=== PATIENT | female | born 1975 | race Caucasian/White ===

== ENCOUNTER 2016-12-20 20:03 | Outpatient (CLI) | payer MEDICAID ==
[~2016-12-20] VITALS: Ht 167.6 cm; Wt 91.0 kg
[~2016-12-20 20:03] MED LIST: PREN1TAB49 PO
[2016-12-20 20:42] VITALS: BP 106/65; PULSE 83; RESP 18
[2016-12-20] MEDS ORDERED: CALC600T24 PO (23:16)
[2016-12-20] MEDS ORDERED: MISOPROSTOL 200 MCG TAB PR PRN (23:30)
[2016-12-20] MEDS ORDERED: BUTORPHANOL 2 MG INJ IV PRN (23:30)
[2016-12-20] MEDS ORDERED: IBUPROFEN 600 MG TAB PO PRN (23:30)
[2016-12-20] MEDS ORDERED: METHYLERGONOVINE 0.2 MG INJ IM PRN (23:30)
[2016-12-20] MEDS ORDERED: CARBOPROST 250 MCG INJ IM PRN (23:30)
[2016-12-20] MEDS ORDERED: OXYTOCIN 30 UNITS/LR 500 ML IV SCH ×2 (23:30)
[2016-12-20] MEDS ORDERED: LIDOCAINE 1% (MPF) 30 ML INJ INJ PRN (23:30)
[2016-12-20] MEDS ORDERED: OXYTOCIN 30 UNITS/LR 500 ML IV PRN (23:30)
[2016-12-20] MEDS ORDERED: AMPICILLIN 2 GM/NS (PMX) 100 ML IV ONE (23:30)
--- NOTE | 2016-12-20 23:55 | TRIAGE ---
OB Triage Datetime Report Generated by CPN: 12/20/2016 23:55 Datetime: 12/20/2016 21:32 Stage of : OB Triage Labor Evaluation Frequency: 7-15 Monitor Mode: External Duration (sec)2399: 60 Quality: Moderate Pattern: Normal: <= 5 Contractions in 10 Minutes Resting Tone Villalba: Relaxed Heart Rate FHR Baseline Rate: 120 Monitor Mode: External US FHR Baseline Changes: No Baseline Change Variability: Moderate 6-25 bpm Accelerations: 15X15 Decelerations: Variable Category: Category II Pain Assessment Pain Scale: 7 Pain Presence: Intermittent Pain Type: Contraction Pain Location: Abdomen Vaginal Exam Dilatation (cms): 3.0 Effacement (%): 60 Station: -3 Exam By: Mateo Briseno Membrane Status: Intact Amniotic Fluid Amount: None Vaginal Bleeding: Scant Cervix, Consistency: Soft Cervix, Position: Posterior Presentation 'A': Cephalic Datetime: 12/20/2016 20:23 Stage of : OB Triage Maternal Assessment Level of Consciousness: Fully Conscious Headache: Denies Blurred Vision: No Respiratory Effort: Unlabored Nausea/Vomiting: Denies RUQ Epigastric Pain: Denies Facial Edema: None Labor Evaluation Frequency: placed Monitor Mode: External Resting Tone Villalba: Relaxed Monitor Mode: External US Comments: FHT 135 Pain Assessment Pain Scale: 7 Pain Presence: Intermittent Pain Type: Cramping; Dull Pain Location: Abdomen; Back Datetime: 12/20/2016 20:15 Time of Arrival: 12/20/2016 19:56 EGA: 38.1 Arrived By: Wheelchair Arrived From: Home Chief Complaint: w/ c/o ucs and discharge, DFM Movement: Decreased Contractions: Irregular Time Contractions Began: 12/20/2016 18:30 Contractions: q5-10 Rupture of Membranes: Denies Vaginal Bleeding: None Vaginal Discharge: Present Recent Sexual Intercouse: Denies Abdominal Trauma: Not Applicable Patient Complaints: Contractions; Back Pain Time Provider Notified: 12/20/2016 22:35 Provider Notified: Dr Lentz Initial Plan: JAQUELINE MURPHY
[2016-12-21] MEDS: LACTATED RINGER'S 1,000 ML IV SCH ×4 (00:10→17:07)
[2016-12-21] MEDS ORDERED: LACTATED RINGER'S 1,000 ML IV PRN (00:30)
[2016-12-21 00:59] LABS: BASOPHIL # 0.1 10^3/ul (0.0-0.1); BASOPHILS % 0.7 % (0.0-2.0); EOSINOPHILS # 1.1 10^3/ul (0.0-0.5); EOSINOPHILS % 10.4 % (0.0-7.0); HEMATOCRIT 33.3 % (37.0-47.0); HEMOGLOBIN 10.8 g/dl (12.0-16.0); LYMPHOCYTES # 2.8 10^3/ul (0.8-2.9); LYMPHOCYTES % 26.8 % (15.0-51.0); MEAN CORPUSCULAR HEMOGLOBIN 27.5 pg (29.0-33.0); MEAN CORPUSCULAR HGB CONC 32.4 g/dl (32.0-37.0); MEAN CORPUSCULAR VOLUME 84.7 fl (82.0-101.0); MEAN PLATELET VOLUME 9.8 fl (7.4-10.4); MONOCYTE # 0.7 10^3/ul (0.3-0.9); MONOCYTES % 6.3 % (0.0-11.0); NEUTROPHIL # 5.7 10^3/ul (1.6-7.5); NEUTROPHILS % 55.5 % (39.0-77.0); PLATELET COUNT 353 10^3/UL (140-415); RED BLOOD COUNT 3.93 10^6/ul (4.20-5.40); RED CELL DISTRIBUTION WIDTH 13.4 % (11.5-14.5); WHITE BLOOD COUNT 10.3 10^3/ul (4.8-10.8)
[2016-12-21 01:14] LABS: INR 0.97; PROTIME 12.9 Sec (12.2-14.2)
[2016-12-21 01:15] LABS: PARTIAL THROMBOPLASTIN TIME 28.4 Sec (25.0-35.0)
[2016-12-21 02:04] LABS: BARBITURATES Negative (NEGATIVE); BENZODIAZEPINES Negative (NEGATIVE); CANNABINOIDS Negative (NEGATIVE); COCAINE Negative (NEGATIVE); OPIATES Negative (NEGATIVE)
[2016-12-21] MEDS ORDERED: MINERAL OIL LIGHT 10 ML VIAL TOP ONE (03:00)
[2016-12-21] MEDS ORDERED: AMPICILLIN 1 GM/NS (PMX) 50 ML IV SCH (03:30)
--- NOTE | 2016-12-21 03:50 | HP ---
Date/Time of Note Date/Time of Note DATE: 12/21/16 TIME: 03:42 OB - History Hx of Present Free Text/Dictation 41 y.o [id number] at 38w1d with c/o back pain and uterine contractions,membrane intact VE 3/60%/-3 admitted for expectant management. Chief Complaint: uterine contractions Estimated Due Date: Jan 02, 2017 : 13 Para: 10 Spontaneous : 2 Therapeutic : 0 Care: Other Obstetrical Complications: None Medical Complications: None Past Family/Social History * Past Medical, Surgical, Family and Obstetric Histories reviewed from chart. Blood Type: A+ Rubella: immune RPR/VDRL: Negative GBS Status: Negative HBsAG: Negative OB Admission Exam Vital Signs Vital Signs Vital Signs Date Time Temp Pulse Resp B/P Pulse Ox O2 Delivery O2 Flow Rate FiO2 12/20/16 20:42 98.3 83 18 106/65 Room Air Physical Exam HEENT: WNL Heart: Rhythm Normal Lungs: Clear, Equal Abdomen: WNL Extremities: Normal Reflexes: Normal Cervical Dilatation: 3cm Effacement: Other (60%) Station: -3 Membranes: Intact Amniotic Fluid: Unevaluable Heart Rate: 140's Accelerations: Accelerations Present Decelerations: No Decelerations Varibility: Moderate Contractions on Admission: < 5 Minutes Apart Intensity: Moderate Last 72 hours Lab Results CBC & BMP 12/21/16 00:01 OB Assessment/Plan Reason for admission: active labor Other Assessment: [id number] Plan: Expectant Management OCTAVIO BEDOYA MD Dec 21, 2016 03:50
--- NOTE | 2016-12-21 17:56 | QN ---
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
--- NOTE | 2016-12-21 17:59 | PD.PPDC ---
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
--- NOTE | 2016-12-21 18:20 | RADRPT ---
PROCEDURE: US biophysical profile. CLINICAL INDICATION: Early labor. TECHNIQUE: Multiple sonographic images of the uterus were obtained. The images were revi ewed on a PACS workstation. COMPARISON: No prior studies are available for comparison. FINDINGS: There is a single live intrauterine gestation. heart rate is 132 beats per minute. The position is cephalic. The placenta is posterior grade II with no abruption or previa. The ASHLEIGH is 16.0 cm. (Normal = 5-20 cm.) Breathing Movement: 2 Gross Body Movement: 2 Tone: 2 Qualitative Amniotic Fluid Volume: 2 TOTAL: 8 IMPRESSION: 1. The biophysical score is 8/8. RPTAT: QQ .Bryn Doyle MD, Date Time Electronically viewed and signed by .Bryn Doyle MD, MD on 12/21/2016 18:20 .R/
== END 2016-12-21 19:00 | disposition home or self-care (01) ==
LOC: OBT 20:03 → L-D 20:05 → OBT 22:45 → UNDOADMOB 22:45 → L-D 22:45 → INTOOBSV 22:45 → L-D 12-21 00:58 → OBT 12-21 19:00
PROVIDERS: ATTEND Obstetrics & Gynecology
DX: O62.9 Abnormality of forces of labor, unspecified (principal); Z3A.38 38 weeks gestation of pregnancy
CPT/HCPCS: 76818; 80307; 85025; 85610; 85730; 86592; 86850; 86900; 86901; 86920; 87340; J7120; Z7500; G0463

== ENCOUNTER 2017-01-03 09:00 | Inpatient (IN) | payer MEDICAID ==
[~2017-01-03] VITALS: Ht 167.6 cm; Wt 90.9 kg
[~2017-01-03 09:00] MED LIST changes: +CALC600T24 PO
[2017-01-03 09:44] VITALS: Ht 167.6 cm; Wt 90.9 kg
[2017-01-03 09:57] VITALS: BP 106/66; PULSE 70; RESP 18
[2017-01-03] MEDS ORDERED: BUTORPHANOL 2 MG INJ IV PRN (10:00)
[2017-01-03] MEDS ORDERED: IBUPROFEN 600 MG TAB PO PRN (10:00)
[2017-01-03] MEDS ORDERED: METHYLERGONOVINE 0.2 MG INJ IM PRN ×2 (10:00→22:30)
[2017-01-03] MEDS ORDERED: LIDOCAINE 1% (MPF) 30 ML INJ INJ PRN (10:00)
[2017-01-03] MEDS ORDERED: OXYTOCIN 30 UNITS/LR 500 ML IV SCH ×3 (10:00→15:25)
[2017-01-03] MEDS ORDERED: OXYTOCIN 30 UNITS/LR 500 ML IV PRN ×2 (10:00→22:30)
[2017-01-03] MEDS ORDERED: MISOPROSTOL 200 MCG TAB PR PRN ×2 (10:00→22:30)
[2017-01-03] MEDS ORDERED: CARBOPROST 250 MCG INJ IM PRN ×2 (10:00→22:30)
[2017-01-03] MEDS: LACTATED RINGER'S 1,000 ML IV SCH ×2 (10:09→15:42)
[2017-01-03 12:15] LABS: WHITE BLOOD COUNT 7.7 10^3/ul (4.8-10.8)
[2017-01-03 12:16] LABS: BASOPHILS % 0.4 % (0.0-2.0); EOSINOPHILS # 0.7 10^3/ul (0.0-0.5); EOSINOPHILS % 9.1 % (0.0-7.0); HEMATOCRIT 33.6 % (37.0-47.0); HEMOGLOBIN 11.1 g/dl (12.0-16.0); LYMPHOCYTES # 1.8 10^3/ul (0.8-2.9); LYMPHOCYTES % 23.4 % (15.0-51.0); MEAN CORPUSCULAR VOLUME 84.8 fl (82.0-101.0); MONOCYTE # 0.3 10^3/ul (0.3-0.9); MONOCYTES % 4.4 % (0.0-11.0); NEUTROPHIL # 4.8 10^3/ul (1.6-7.5); NEUTROPHILS % 62.4 % (39.0-77.0); PLATELET COUNT 382 10^3/UL (140-415); RED BLOOD COUNT 3.96 10^6/ul (4.20-5.40); RED CELL DISTRIBUTION WIDTH 14.3 % (11.5-14.5)
[2017-01-03 12:34] LABS: INR 0.94; PROTIME 12.6 Sec (12.2-14.2)
[2017-01-03 12:35] LABS: PARTIAL THROMBOPLASTIN TIME 28.8 Sec (25.0-35.0)
--- NOTE | 2017-01-03 14:15 | RADRPT ---
PROCEDURE: US OB. CLINICAL INDICATION: Size and dates , macrosomia TECHNIQUE: Multiple sonographic images of the pelvis and gravid uterus were obtained. The images were reviewed on a PACS workstation. COMPARISON: 12/21/2016 FINDINGS: There is a single viable intrauterine gestation. Cardiac activity is present with 132 beats per min [place]. There is a vertex presentation. The placenta is posterior. There is no evidence for an abruption or placenta previa. Measurements were made in order to determine age. The results are as follows: BPD =9.1 cm HC =32.7 cm AC =35.4 cm FL =7.4 cm Estimated gestational age of approximately 37 weeks and 5 days based on ultrasound measurements. Clinical age: 40 weeks and 1 day. The estimated date of delivery is 01/19/17, based on ultrasound measurements. The EFW = 3467 g, 35.1%, based on LMP age. RPTAT: AA IMPRESSION: Single viable intrauterine gestation of approximately 37 weeks and 5 days based on ultrasound measu rements. .David Snider MD, MD Date Time Electronically viewed and signed by .David Snider MD, on 01/03/2017 14:15 .S/
[2017-01-03] MEDS: LACTATED RINGER'S 1,000 ML IV PRN ×2 (15:40→16:30)
[2017-01-03] MEDS ORDERED: LACTATED RINGER'S 1,000 ML IV ONE (15:57)
[2017-01-03] MEDS ORDERED: FENTAnyl 2MCG/ML-ROPIV 0.2% 100 ML BAG EPI SCH (16:00)
[2017-01-03] MEDS ORDERED: ONDANSETRON 4 MG INJ IV PRN (16:00)
[2017-01-03] MEDS ORDERED: morphine 2 MG INJ IV PRN (16:00)
[2017-01-03] MEDS ORDERED: ONDANSETRON 4 MG INJ IV ONE (16:00)
[2017-01-03] MEDS ORDERED: NALBUPHINE HCL (10 MG/1 ML) INJ IV PRN (16:00)
[2017-01-03] MEDS ORDERED: DIPHENHYDRAMINE 50 MG INJ IV PRN (16:00)
[2017-01-03] MEDS ORDERED: NALOXONE (0.4 MG/ML) INJ IV PRN (16:00)
[2017-01-03] MEDS ORDERED: KETOROLAC 30 MG INJ IV PRN (16:00)
[2017-01-03] MEDS ORDERED: TRIMETHOBENZAMIDE 100 MG/ML VIAL IM PRN (16:00)
[2017-01-03] MEDS ORDERED: morphine 4 MG/ML VIAL IV PRN (16:00)
[2017-01-03] MEDS ORDERED: CITRIC ACID/NA CITRATE 30 ML CUP PO ONE (16:00)
[2017-01-03] MEDS ORDERED: FENTAnyl 2MCG/ML-ROPIV 0.2% 100 ML ONE (16:03)
[2017-01-03] MEDS ORDERED: CITRIC ACID/NA CITRATE 30 ML CUP ONE (16:05)
[2017-01-03] MEDS ORDERED: ONDANSETRON 4 MG INJ ONE (16:05)
--- NOTE | 2017-01-03 18:02 | HP ---
Date/Time of Note Date/Time of Note DATE: 01/03/17 TIME: 17:59 OB - History Hx of Present Free Text/Dictation 42-year-old female 13 para 10 SAB 2 at 40 weeks gestation admitted for induction of labor Last Menstrual Period: Mar 28, 2016 Estimated Due Date: Jan 02, 2017 : 13 Para: 10 Spontaneous : 2 Care: Good Care Ultrasounds: Normal mid trimester US Obstetrical Complications: Other (Grand multiparity) Medical Complications: None ( ) Past Family/Social History * Past Medical, Surgical, Family and Obstetric Histories reviewed from chart. Blood Type: A+ Rubella: immune RPR/VDRL: Negative GBS Status: Negative HBsAG: Negative OB Admission Exam Vital Signs Vital Signs Vital Signs Date Time Temp Pulse Resp B/P Pulse Ox O2 Delivery O2 Flow Rate FiO2 01/03/17 09:57 97.8 70 18 106/66 Room Air Physical Exam HEENT: WNL Heart: Rhythm Normal Lungs: Clear, Equal Abdomen: WNL Extremities: Normal Reflexes: Normal Cervical Dilatation: 2cm Effacement: 50% Station: -3 Membranes: Intact Heart Rate: 140's Accelerations: Accelerations Present Decelerations: No Decelerations Varibility: Moderate Contractions on Admission: None Last 72 hours Lab Results CBC & BMP 01/03/17 10:10 OB Assessment/Plan Reason for admission: induction of labor Other Assessment: Term gestation 40+ weeks gestation Induction Method: per Pitocin Protocol Other plan: We will rupture membrane and started on Pitocin not exceeding over 5 million ALEKSEY SHAW MD Jan 03, 2017 18:02
--- NOTE | 2017-01-03 18:47 | LDN ---
Date/Time of Note Date/Time of Note DATE: 01/03/17 TIME: 18:44 Delivery Summary Normal spontaneous vaginal delivery of a viable over intact perineum Weeks of Gestation 40+ Placenta Delivered: Spontaneously, Intact & Complete Meconium: none Episiotomy: No Perineal laceration: 0 Anesthesia type: Epidural Estimated blood loss: 300 Sponge & Needle done & correct: Yes All needle counts correct: Yes Any foreign bodies felt in the: No Problems: Infant Delivery Information Sex Infant Sex: female Apgars 1 Minute: 9 5 Minute: 9 Suctioning Nose & mouth suctioned at isabela: Yes Delee suction performed: No Umbilical Cord Umbilical cord with: 3 Vessels Cord presentations: no nuchal cord Cord Blood was obtained: Yes Mother & Baby Disposition Disposition Mom & Baby to Maternity; Good: Yes (Mother and baby were recovered in good condition) Mom transferred to: Other (Maternity) Baby to NICU: No ALEKSEY SHAW MD Jan 03, 2017 18:47
[2017-01-03] MEDS ORDERED: LANOLIN 7 GM TUBE TOP PRN (22:30)
[2017-01-03] MEDS: MAGNESIUM HYDROXIDE 30ML CUP PO SCH (22:30)
[2017-01-03] MEDS ORDERED: HYDROCODONE/APAP (5/325) TAB PO PRN ×2 (22:30)
[2017-01-03] MEDS ORDERED: ZOLPIDEM 5 MG TAB PO PRN (22:30)
[2017-01-03] MEDS ORDERED: DIBUCAINE 1% 30 GM OINT PR PRN (22:30)
[2017-01-03] MEDS ORDERED: BENZOCAINE 20% 56 ML SPRAY TOP PRN (22:30)
[2017-01-03] MEDS ORDERED: WITCH HAZEL/GLYCERIN PAD PR PRN (22:30)
[2017-01-03 22:50] VITALS: BP 119/74; PULSE 62; RESP 18
[2017-01-03] MEDS: LACTATED RINGER'S 1,000 ML IV* SCH (22:59)
[2017-01-03 23:30] VITALS: BP 110/62; PULSE 82; RESP 18
[2017-01-03] MEDS: IBUPROFEN 600 MG TAB PO SCH (23:52)
[2017-01-03] MEDS: CEPHALEXIN 500 MG CAP PO SCH (23:52)
[2017-01-04 04:05] VITALS: BP 99/60; PULSE 60; RESP 16
[2017-01-04] MEDS: IBUPROFEN 600 MG TAB PO SCH ×4 (05:38→23:57)
[2017-01-04] MEDS: CEPHALEXIN 500 MG CAP PO SCH ×4 (06:57→23:57)
[2017-01-04] MEDS: LACTATED RINGER'S 1,000 ML IV* SCH ×3 (06:58→22:29)
[2017-01-04 08:00] VITALS: BP 89/54; PULSE 63; RESP 20
[2017-01-04] MEDS: MAGNESIUM HYDROXIDE 30ML CUP PO SCH ×2 (09:00→20:53)
[2017-01-04] MEDS: SENNA/DOCUSATE NA (8.6MG/50MG) TAB PO SCH ×2 (09:00→20:53)
[2017-01-04 09:12] LABS: BASOPHILS % 0.3 % (0.0-2.0); EOSINOPHILS # 0.9 10^3/ul (0.0-0.5); EOSINOPHILS % 7.4 % (0.0-7.0); HEMATOCRIT 33.3 % (37.0-47.0); HEMOGLOBIN 10.7 g/dl (12.0-16.0); LYMPHOCYTES # 2.1 10^3/ul (0.8-2.9); MEAN CORPUSCULAR HEMOGLOBIN 27.6 pg (29.0-33.0); MEAN CORPUSCULAR HGB CONC 32.1 g/dl (32.0-37.0); MEAN PLATELET VOLUME 9.6 fl (7.4-10.4); MONOCYTE # 0.9 10^3/ul (0.3-0.9); MONOCYTES % 7.9 % (0.0-11.0); NEUTROPHIL # 7.5 10^3/ul (1.6-7.5); NEUTROPHILS % 65.9 % (39.0-77.0); PLATELET COUNT 321 10^3/UL (140-415); RED BLOOD COUNT 3.87 10^6/ul (4.20-5.40); RED CELL DISTRIBUTION WIDTH 14.2 % (11.5-14.5); WHITE BLOOD COUNT 11.4 10^3/ul (4.8-10.8)
[2017-01-04 12:32] VITALS: BP 90/43; PULSE 54; RESP 18
[2017-01-04 16:15] VITALS: BP 82/53; PULSE 53; RESP 19
[2017-01-04] MEDS ORDERED: FENTAnyl 50 MCG/ML VIAL ONE (17:07)
--- NOTE | 2017-01-04 17:07 | PN ---
Date/Time of Note Date/Time of Note DATE: 01/04/17 TIME: 17:06 Assessment/Plan VTE Prophylaxis VTE Prophylaxis Intervention: ambulation Lines/Catheters IV Catheter Type (from Nrs): Peripheral IV Assessment/Plan Assessment/Plan S/P vaginal delivery desires sterilization will proceed with BTL Subjective 24 Hr Interval Summary Free Text/Dictation S/P vaginal delivery desires sterilization Constitutional: improved, no complaints Eyes: no complaints ENT: no complaints Respiratory: no complaints Cardiovascular: no complaints Gastrointestinal: no complaints Genitourinary: no complaints Musculoskeletal: no complaints Skin: no complaints Neurologic: no complaints Endocrine: no complaints Lymphatic: no complaints Psychological: nl mood/affect, no complaints Immunologic: no complaints Exam/Review of Systems Vital Signs Vitals Vital Signs Date Time Temp Pulse Resp B/P Pulse Ox O2 Delivery O2 Flow Rate FiO2 01/04/17 16:15 97.9 53 19 82/53 99 Room Air Intake and Output 01/03/17 01/03/17 01/04/17 15:00 23:00 07:00 Intake Total 625 ml 3149 ml 950 ml Output Total 700 ml 1950 ml 800 ml Balance -75 ml 1199 ml 150 ml Exam Constitutional: alert, oriented, well developed Psych: nl mood/affect, no complaints Head: atraumatic, normocephalic Eyes: EOMI, PERRL, nl conjunctiva, nl lids, nl sclera ENMT: nl external ears & nose, nl lips & teeth, nl nasal mucosa & septum Neck: non-tender, supple Respiratory: clear to auscultation, normal air movement Cardiovascular: nl pulses, regular rate and rhythm Gastrointestinal: nl liver, spleen, non-tender, soft Genitourinary - Female: uterus (firm ) Musculoskeletal: nl extremities to inspection, nl gait and stance Extremities: normal pulses Neurological: 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0 Neutrophils # 7.5 Lymphocytes # 2.1 Monocytes # 0.9 Eosinophils # 0.9 H Basophils # 0.0 Nucleated Red Blood Cells # 0.0 Medications Medications Current Medications Lactated Ringer's (Lr) 1,000 ml @ 125 mls/hr Q8H IV* Last administered on 14:29; Admin Dose 125 MLS/HR; Start 01/03/17 at 22:29 Ibuprofen (Motrin) 600 mg Q6 PO Last administered on 01/04/17 05:38; Admin Dose 600 MG; Start 01/04/17 at 00:00 Acetaminophen/ Hydrocodone Bitart (Palmer (5/325)) 1 tab Q4H PRN PO PAIN LEVEL 1 -5; Start 01/03/17 at 22:30 Acetaminophen/ Hydrocodone Bitart (Palmer (5/325)) 2 tab Q4H PRN PO PAIN LEVEL 6 -10; Start 01/03/17 at 22:30 Zolpidem Tartrate (Ambien) 5 mg QHS PRN PO INSOMNIA; Start 01/03/17 at 22:30 Senna/Docusate Sodium (Senokot-S) 1 tab BID PO ; Start 01/04/17 at 09:00 Magnesium Hydroxide (Milk Of Mag) 30 ml Q12 PO ; Start 01/03/17 at 22:30 Measles/Mumps/ Rubella Vaccine Live (Mmr Ii Vaccine) 0.5 ml ONCE ONCE SC* ; Start 01/05/17 at 09:00; Stop 01/05/17 at 09:01 Diphtheria/ Tetanus/Acell Pertussis (Adacel) 0.5 ml ONCE ONCE IM* ; Start 01/05 at 09:00; Stop 01/05/17 at 09:01 Varicella Virus Vaccine Live 1350 unit 1,350 unit ONCE ONCE SC* ; Start at 09:00; Stop 01/05/17 at 09:01 Oxytocin/Lactated Ringer's 500 ml @ 0 mls/hr ONCE PRN IV For Hemorrhage Management; Start 01/03/17 at 22:30 Methylergonovine Maleate (Methergine) 0.2 mg ONCE PRN IM VAGINAL BLEEDING; Start 01/03/17 at 22:30 Carboprost Tromethamine (Hemabate) 250 mcg ONCE PRN IM VAGINAL BLEEDING; Start 01/03/17 at 22:30 Misoprostol (Cytotec) 1,000 mcg ONCE PRN [place] VAGINAL BLEEDING; Start 01/03/17 at 22:30 Cephalexin (Keflex) 500 mg Q6 PO Last administered on 01/04/17t 06:57; Admin Dose 500 MG; Start 01/04/17 at 00:00 ALEKSEY SHAW MD Jan 04, 2017 17:07
--- NOTE | 2017-01-04 18:14 | QN ---
Documentation Comment Patient was stuck several times for spinal anesthesia without any success finally she decided to abort the procedure General anesthesia was also offered to her which she refused will DC home next day ALEKSEY SHAW MD Jan 04, 2017 18:14
--- NOTE | 2017-01-04 18:15 | DS ---
Date/Time of Note Date/Time of Note Home next day DATE: 01/04/17 TIME: 18:14 Obstetrical Discharge Record Final Diagnosis Final Diagnosis: Term delivered Other Final Diagnosis Status post vaginal delivery Vaginal Delivery Obstetrical Delivery: Spontaneous Complications Augmentation: Yes Condition on Discharge Physical Assessment Last Vitals: See nurse's notes Voiding: Yes Bowel Movement: Yes Breast: Soft, non-tender, Filling Fundus: Firm Abdomen and Incision: Soft bowel sounds present Episiotomy: Not applicable Calf Tenderness: No Patient Condition: Good ALEKSEY SHAW MD Jan 04, 2017 18:15
[2017-01-04] MEDS ORDERED: IBUP-1542 PO (18:17)
--- NOTE | 2017-01-04 18:17 | PD.PPDC ---
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
[2017-01-04 20:15] VITALS: BP 101/59; PULSE 66; RESP 20
[2017-01-05 05:06] VITALS: BP 98/56; PULSE 60; RESP 18
[2017-01-05] MEDS: IBUPROFEN 600 MG TAB PO SCH ×2 (05:34→12:39)
[2017-01-05] MEDS: CEPHALEXIN 500 MG CAP PO SCH ×2 (05:34→12:00)
[2017-01-05] MEDS: LACTATED RINGER'S 1,000 ML IV* SCH ×2 (06:29→14:29)
[2017-01-05 08:00] VITALS: BP 101/64; PULSE 50; RESP 18
[2017-01-05] MEDS ORDERED: DIPHTH/TET/ACEL PERTUSS (ADULT) 0.5 ML VIAL IM* ONE (09:00)
[2017-01-05] MEDS ORDERED: VARICELLA VACCINE LIVE/PF 1,350 UNIT/0.5 ML ML SC* ONE (09:00)
[2017-01-05] MEDS ORDERED: MEASLES,MUMPS,RUBELLA VACCINE INJ SC* ONE (09:00)
[2017-01-05] MEDS: MAGNESIUM HYDROXIDE 30ML CUP PO SCH (09:07)
[2017-01-05] MEDS: SENNA/DOCUSATE NA (8.6MG/50MG) TAB PO SCH (09:07)
[2017-01-05] MEDS ORDERED: DIPHENHYDRAMINE 50 MG CAP PO ONE (13:00)
[2017-01-05 14:46] LABS: ALBUMIN 2.9 g/dl (3.3-4.9); ALBUMIN/GLOBULIN RATIO 0.8; CALCIUM 9.4 mg/dl (8.4-10.2); CREATININE 0.72 mg/dl (0.44-1.00); POTASSIUM 4.2 mmol/L (3.5-5.1); TOTAL PROTEIN 6.5 g/dl (6.1-8.1)
== END 2017-01-05 17:40 | disposition home or self-care (01) | DRG 775 ==
LOC: L-D 09:25 → PP1 21:22 → L-D 21:22 → PP1 21:29
PROVIDERS: ADMIT Obstetrics & Gynecology; ATTEND Obstetrics & Gynecology
PROC: 3E0P3VZ Introduction of Hormone into Female Reproductive, Percutaneous Approach (ICD-10-PCS; 2017-01-03)
PROC: 10E0XZZ Delivery of Products of Conception, External Approach (ICD-10-PCS; principal; 2017-01-03 09:00)
DX: O48.0 Post-term pregnancy (principal); O99.02 Anemia complicating childbirth; Z3A.40 40 weeks gestation of pregnancy; Z37.0 Single live birth
CPT/HCPCS: 62319; 76815; 80053; 83789; 85025; 85610; 85730; 86592; 86900; 86901; 87340; 90715; 90716; J2210; J2405; J2590; J3010; J7120